=== PATIENT | female | born 1960 | race Two or more races ===

== ENCOUNTER → 2019-02-15 | Outpatient (CLI) | payer OTHER ==
[~2019-02-15] VITALS: Ht 160 cm; Wt 77.1 kg
== END | disposition home or self-care (01) ==
LOC: Rad HDHVI 09:31
PROVIDERS: ATTEND Internal Medicine Cardiovascular Disease
DX: I08.1 Rheumatic disorders of both mitral and tricuspid valves (principal); R00.0 Tachycardia, unspecified
CPT/HCPCS: 78452; 93017; 93306; 96374; A9500

== ENCOUNTER → 2021-02-07 | Outpatient (CLI) | payer OTHER | END | disposition home or self-care (01) | LOC: Rad HDHVI 07:59 | PROVIDERS: ATTEND Internal Medicine Cardiovascular Disease | DX: R00.2 Palpitations (principal); I10 Essential (primary) hypertension | CPT/HCPCS: 93306 ==

== ENCOUNTER → 2021-02-17 | Outpatient (CLI) | payer OTHER ==
[~2021-02-17] VITALS: Ht 160 cm; Wt 72.6 kg
== END | disposition home or self-care (01) ==
LOC: Rad HDHVI 09:32
PROVIDERS: ATTEND Internal Medicine Cardiovascular Disease
DX: R94.31 Abnormal electrocardiogram [ECG] [EKG] (principal); I10 Essential (primary) hypertension; E78.00 Pure hypercholesterolemia, unspecified; F17.210 Nicotine dependence, cigarettes, uncomplicated
CPT/HCPCS: 78452; 93017; 96374; A9500